=== PATIENT | female | born 1995 | race Caucasian/White ===

== ENCOUNTER → 2018-03-08 | Outpatient (CLI) | payer OTHER ==
--- NOTE | 2018-03-08 11:59 | DIAGNOSTIC IMAGING REPORT ---
RIGHT HIP INJECTION UNDER FLUOROSCOPIC GUIDANCE CLINICAL HISTORY: Right hip pain. Injection for MR arthrogram. PROCEDURE: The risks, benefits, and alternatives to the procedure were discussed with the patient. Written informed consent was obtained. The patient was placed supine on the fluoroscopy table, and a right hip injection was performed under fluoroscopic guidance. The area was prepped and draped in the usual sterile fashion. The skin and soft tissues anesthetized with local 1% lidocaine. The right hip joint was accessed utilizing a 22-gauge needle, and approximately 6 cc of a mixture of gadolinium contrast, Optiray 300, and saline was injected into the joint space under fluoroscopic guidance. There was normal distention of the capsule. The procedure was well tolerated and without immediate complication. The patient was then transferred to MRI for MR arthrography. FLUOROSCOPY TIME: 21 seconds. IMPRESSION: Successful injection of the right hip under fluoroscopic guidance. Electronically signed by: Joe Enrique M.D. 03/08/2018 11:58 AM Dictated Date/Time: 03/08/2018 11:57 AM
--- NOTE | 2018-03-08 12:27 | DIAGNOSTIC IMAGING REPORT ---
RIGHT HIP MRI with INTRA-ARTICULAR CONTRAST HISTORY: RT HIP PAIN TECHNIQUE: Multiplanar multisequence MRI of the right hip was performed following the intra-articular injection of contrast. COMPARISON STUDY: None. FINDINGS: No fracture or dislocation within the right hip. Normal marrow signal intensity seen throughout the wrist as osseous structures. Cartilage spaces are well-maintained. The labrum is intact. No evidence for labral tear. Soft tissues of the right hip are within normal limits. Incidental note is made of an intrauterine device which is in good position. Trace pelvic free fluid. This is likely physiologic in a female. IMPRESSION: Right hip MR arthrogram is within normal limits. Specifically, no evidence for a labral tear. Electronically signed by: Duane Layton M.D. 03/08/2018 12:26 PM Dictated Date/Time: 03/08/2018 12:16 PM
== END | disposition home or self-care (01) ==
LOC: C.MRIBC 10:48
PROVIDERS: ATTEND Internal Medicine
DX: M25.551 Pain in right hip (principal)